=== PATIENT | male | born 1955 | race Caucasian/White ===

== ENCOUNTER → 2017-11-03 | Outpatient (CLI) | payer BC ==
[~2017-11-03] MED LIST: DILT-145 PO; RIVA20TA PO
--- NOTE | 2017-11-03 16:41 | RADIOLOGY IMAGING REPORT ---
FACILITY: [facility] [place] PATIENT NAME: Jean Sesay : 1955 MR: [id number] V: [id number] EXAM DATE: ORDERING PHYSICIAN: EFRAIN MCDOWELL TECHNOLOGIST: Location: [facility] [place] Patient: Jean Sesay : 1955 Visit/Account:[id number] Date of Sevice: 11/03/2017 Exam type: FOOT 2 VIEW LEFT History: CAT bite on left foot 1 1/2 weeks ago, swollen and red Comparison: None. Findings: There is soft tissue swelling seen adjacent to the left fifth metatarsal phalangeal joint. No underl dorothea bony erosion or radiopaque foreign body is seen. No evidence of acute fracture or dislocation IMPRESSION: 1. Soft tissue spine is seen adjacent to the left fifth metatarsophalangeal joint although no fractu re or dislocation, bony erosion or foreign body is seen Report Dictated By: Elva Carrero MD at 11/03/2017 4:35 PM Report E-Signed By: Elva Carrero MD at 11/03/2017 4:37 PM WSN:[id number]
== END ==
LOC: RAD 14:14
PROVIDERS: ATTEND Physician Assistant Medical
DX: M25.475 Effusion, left foot (principal)